=== PATIENT | female | born 1985 | race Caucasian/White ===

== ENCOUNTER 2019-10-22 08:56 | Emergency (ER) | payer SELFPAY ==
[2019-10-22 08:57] VITALS: BP 151/76; PULSE 110; RESP 17; TEMP 36.8; O2SAT 100; BMI 25.6
--- NOTE | 2019-10-22 09:25 | ED.VIS.LOWEX ---
History of Present Illness Chief Complaint: Cellulitis Informant: Patient Occurred: Yesterday Onset: Yesterday Context: Gradual Onset Quality of Pain: Throbbing Narrative: Patient is a 34-year-old female with no known past history presenting with redness and swelling of her left calf. It started with this. It looks like is it. Patient has been tried to squeeze it but does not get any pain. She is having worsening pain. She went to urgent care and was then sent to the emergency room. She denies any associated fever, chills, chest pain, nausea or vomiting. She denies any numbness or tingling. She states she has pain at the site. She denies history of MRSA or abscess. She notes her significant abscess a week or so ago. She denies any other complaints. She is not sure if she is . Past Medical History - Allergies and Home Meds Allergies/Adverse Reactions: Allergies No Known Allergies Allergy (Verified 10/22/19 08:56) Primary Care Physician: Gena Thompson MD [STAFF PHYSICIAN] - Past Medical History: None Surgical History: noncontributory Smoking Status: Current every day smoker Review of Systems General: Denies: Chills, Fever, Sweats Eyes: Denies: Visual changes - bilaterally, Diplopia ENT: Denies: Rhinorrhea, Sore throat Cardiovascular: Denies: Chest pain, Palpitations Respiratory: Denies: Dyspnea, Cough, Dyspnea on exertion Gastrointestinal: Denies: Abdominal pain, Nausea, Vomiting, Diarrhea, Melena, Hematochezia Genitourinary: Denies: Dysuria, Hematuria, Frequency Musculoskeletal: Reports: Swelling - left calf , Extremity Pain - left calf . Denies: Back pain Skin: Reports: Abscess - left calf . Denies: Rash, Wounds Neurological: Denies: Headache, Weakness, Numbness Physical Exam Vital Signs/Narrative: Vital Signs Temp Pulse Resp BP Pulse Ox 10/22/19 08:57 98.2 F 110 H 17 151/76 H 100 Left lower extremity-soft tissue swelling of the left calf. Compartments are soft. No associated joint effusions. Normal range of motion. No bony tenderness. Inital Vital Signs reviewed: Yes General: Well nourished, Well developed Head: Normocephalic, Atraumatic Eyes: Perrl, EOMI ENT: No Trauma, Moist Mucous Membranes Neck: Nontender, Full ROM Cardiovascular: Regular rate, Regular rhythm, No murmurs Respiratory: No distress, CTA bilaterally, Chest nontender Abdomen: Soft, Nontender, Nondistended, Normal bowel sounds Back: Nontender Skin: Rash - 15 cm x 5 cm area of erythema on the left calf with central 3 cm x 2 cm area of fluctuance and induration with a central pore. Neurological: Alert, Oriented x3, Cranial nerves II-XII grossly intact, Normal Strength, Normal Sensation Psychological: Normal affect Diagnostic/Tx/Re-eval Laboratory Data 10/22/19 10:20 Urine Test Negative - Medical Decision Making Patient has cellulite and abscess of left calf. Recent exposure to likely MRSA. See procedure note for I&D. Started on Keflex and Bactrim. Urine preg is negative. Margins marked with marking pen to monitor for worsening symptoms. Packing was not placed per patient request. Patient is counseled on wound care and need for follow up. Patient is counseled on signs and symptoms requiring return to the emergency room. Patient verbalizes agreement and understand this plan. Patient discharged home in stable and improved condition. Procedures Procedure(s): Abscess I&D. Area infiltrated with 1 cc of 1% lidocaine. Once analgesia is achieved a #11 blade was used to make a 2 cm linear incision. A sufficient amount of purulent/bloody drainage is expressed. Areas then irrigated. Was left open and a dressing was placed. Patient tolerated procedure reasonably well. ED Disposition - Plan for ED Patient: Disposition: Home or Assisted Living Diagnosis: Cellulitis and abscess of left leg Instructions: ABSCESS, Incision and Drainage Prescriptions: Smz/Tmp Ds [Bactrim Ds] 1 tab PO BID #14 tab Prescription Printed Cephalexin [Keflex] 500 mg PO Q6 #40 cap Prescription Printed Ibuprofen [Motrin] 600 mg PO Q6H PRN PRN #20 tab PRN Reason: Pain Or Fever Prescription Printed Referrals: Gena Thompson MD [STAFF PHYSICIAN] - Additional Instructions: It is very important that you take all mediations as prescribed. Return if you have worsening pain or redness, especially after 48 hours.
[2019-10-22] MEDS: HYDROcodone Bitartrate/Apap 5/325 Tablet PO (10:15)
[2019-10-22 10:32] LABS: Internal QC Validated? YES +Cl - CLEAR BKGD; Pregnancy, Urine Negative Negative
[2019-10-22] MEDS: Smz/Tmp Ds Tablet 1 TABLET PO (11:29)
[2019-10-22] MEDS: Cephalexin 250 MG Capsule 500 MG PO (11:29)
[2019-10-22 11:30] VITALS: BP 140/87; PULSE 87; RESP 16; O2SAT 96
[2019-10-22 11:47] VITALS: RESP 18
== END 2019-10-22 11:48 | disposition home or self-care (01) ==
PROVIDERS: Emergency Provider Emergency Medicine
DX: L02.416 Cutaneous abscess of left lower limb (principal); L03.116 Cellulitis of left lower limb; F17.200 Nicotine dependence, unspecified, uncomplicated
CPT/HCPCS: 10060; 81025; 99283

== ENCOUNTER 2020-01-09 12:23 | Emergency (ER) | payer SELFPAY ==
[2020-01-09 12:24] VITALS: BP 129/81; PULSE 89; RESP 16; TEMP 36.7; O2SAT 100; BMI 22.3
[2020-01-09] MEDS: Smz/Tmp Ds Tablet 1 TABLET PO (12:59)
[2020-01-09] MEDS: Morphine 4 MG/ML Syringe IM (13:00)
--- NOTE | 2020-01-09 13:30 | ED.DCSUM_ITS ---
History of Present Illness Chief Complaint: Abscess Informant: Patient Onset: Days - 2 Context: Gradual Onset Timing: Continuous Quality: sore, red Location: left thigh Current Severity: Severe Maximum Severity: Severe Worsened by: palpation Relieved by: leaving alone/rest Associated Symptoms: none. no fevers. draining a little pus today. Narrative: Patient had a similar abscess more distal on her lower leg that healed couple weeks ago. She states her boyfriend had a similar abscess as well. She has not had these before otherwise. She has no fevers or systemic symptoms. No obvious injury or foreign body in this area. Past Medical History - Allergies and Home Meds Allergies/Adverse Reactions: Allergies No Known Allergies Allergy (Verified 10/22/19 08:56) Primary Care Physician: Care Physician,No Primary [Primary Care Provider] - Past Medical History: None Surgical History: noncontributory Lives: Spouse/ Significant Other Smoking Status: Former smoker Review of Systems General: Denies: Chills, Fever, Sweats Musculoskeletal: Reports: Extremity Pain Skin: Reports: Rash, Abscess Neurological: Denies: Weakness, Numbness Physical Exam Vital Signs/Narrative: Vital Signs Temp Pulse Resp BP Pulse Ox 01/09/20 12:24 98.1 F 89 16 129/81 H 100 Inital Vital Signs reviewed: Yes General: Well nourished, Well developed, No Acute Distress - well-appearing Head: Normocephalic, Atraumatic Eyes: Perrl, EOMI Extremities: No edema, Tenderness - At left thigh abscess. Full range of motion of all joints of left lower extremity. Skin: Rash - Abscess left medial mid thigh, approximately 4 cm in diameter with a significant amount of flaring erythema/cellulitis surrounding it. No lymphangitis. No other areas except for a healed lesion that is nontender and non-erythematous on the medial proximal lower leg. Neurological: Alert, Oriented x3, Cranial nerves II-XII grossly intact, Normal Strength, Normal Sensation Psychological: Normal affect, Normal Mood Diagnostic/Tx/Re-eval - Medical Decision Making See procedure note for incision and drainage. Patient tolerated well. She was pretreated with morphine at her request, in addition to Bactrim. Gauze packing was placed. Bacitracin dressing was placed. She was given a few [place] to use at home after a negative oars report and a prescription for Bactrim and reasons to return to the ER and/or follow-up with surgery if it does not improve or resolve. Procedures Procedure(s): Incision and drainage w/ packing, abscess left thigh --. Informed consent was obtained. Abscess was cleansed with chlorhexidine soap. Anesthetized with 1% lidocaine without epinephrine, total of 15cc. An incision was made with an 11 scalpel blade. A moderate amount of pus was drained. Curved hemostats were used to break up loculations. The wound was copiously irrigated with normal saline. It was loosely packed with non-iodoform gauze. The patient tolerated it well. Bacitracin dressing placed. ED Disposition - Plan for ED Patient: Disposition: Home or Assisted Living Diagnosis: Cutaneous abscess of left lower extremity Instructions: ABSCESS, Incision and Drainage, MRSA SKIN INFECTION, Suspected or Confirmed Prescriptions: Smz/Tmp Ds [Bactrim Ds] 1 tab PO BID #20 tab [facility]: [facility] Hydrocodone Bitart/Apap 5-325 [[place] 5MG-325MG] 1 tablet PO Q4H PRN PRN 2 Days #10 tablet PRN Reason: Pain Transmission Status: [facility] Referrals: Jesús Junior MD [STAFF PHYSICIAN] - As Needed (or return to ER, if not improving and redness not regressing) Doctor,Your [STAFF PHYSICIAN] - 1-2 Weeks (or after abscess is healed to be evaluated for preventative treatments) Additional Instructions: Dressing changes as needed, at least a couple times a day for the first 2 days. Remove and discard gauze in 2 days (on Tuesday). Take the antibiotic as prescribed until completely gone. As long as the redness is improving/regressing toward the center at the time of gauze removal, continue to do dressing changes until there is no more discharge. Place bacitracin or other antibiotic ointment onto the dressing at each change. You may bathe or shower with soapy water and cleanse gently but do not submerge in any other body of water.
== END 2020-01-09 14:50 | disposition home or self-care (01) ==
PROVIDERS: Emergency Provider Emergency Medicine
DX: L02.416 Cutaneous abscess of left lower limb (principal); Z87.891 Personal history of nicotine dependence
CPT/HCPCS: 10060; 96372; 99282

== ENCOUNTER 2020-10-26 21:30 | Outpatient (CLI) | payer MEDICAID, SELFPAY ==
[2020-10-26 21:45] VITALS: BP 121/62; PULSE 82; TEMP 36.5; O2SAT 97
[2020-10-26 21:50] VITALS: BMI 28.0
[2020-10-26 23:46] VITALS: TEMP 36.7; O2SAT 98
[2020-10-26 23:47] VITALS: BP 116/68; PULSE 76
--- NOTE | 2020-11-07 07:14 | OB.TRI.NOTE ---
- Problem List (1) 36 weeks gestation of Status: Acute (2) Uterine contractions Status: Acute History of Present Illness Date of Service: 10/26/20 Reason For Visit: RULE OUT LABOR Date of Service: 10/26/20 Final TRIP: 11/20/20 Gestational age: 36 week 3 day History of Present Illness: Presents with ctx's Allergies No Known Allergies Allergy (Verified 10/26/20 21:51) Physical Exam Vitals: Vital Signs Temp Pulse BP Pulse Ox 98.1 F 76 116/68 98 10/26/20 23:46 10/26/20 23:47 10/26/20 23:47 10/26/20 23:46 NST - FHR Rate Baby A Baseline: 115 Variability:: Moderate Accelerations:: 15 x 15 Decelerations:: None NST Reactive:: Yes Uterine Activity:: Occasional ctx Impression/Plan Cvx unchanged Does not appear to be in PTL at this time NST reactive D/c home with f/u in office
== END 2020-10-27 | disposition home or self-care (01) ==
LOC: WPOUT 21:37 → OBT 21:38
PROVIDERS: Visit Provider Obstetrics & Gynecology
DX: O62.9 Abnormality of forces of labor, unspecified (principal); Z3A.36 36 weeks gestation of pregnancy
CPT/HCPCS: 59025; 59050; 99218; G0378

== ENCOUNTER 2020-11-11 12:35 | Outpatient (CLI) | payer MEDICAID, SELFPAY ==
[2020-11-11 13:10] VITALS: BP 125/68; PULSE 90
[2020-11-11 13:13] VITALS: BP 125/68; PULSE 90; TEMP 36.7; O2SAT 98
[2020-11-11 13:19] VITALS: BMI 28.1
--- NOTE | 2020-11-30 16:14 | OB.TRI.NOTE ---
History of Present Illness Reason For Visit: R/O LABOR Date of Service: 11/11/20 Final TRIP: 11/20/20 Gestational age: 41 Weeks and 3 Days Allergies No Known Allergies Allergy (Verified 11/13/20 04:51) - Pertinent Past Medical History Medical History: Past Medical History (Last Updated 11/13/20 @ 07:[address] Dulce Blas, DO) History of anemia Laboratory Studies: Laboratory Tests 11/11/20 Range/Units 12:50 Vag Amniotic Fld Detect Cancelled Physical Exam Vitals: Vital Signs Temp Pulse BP Pulse Ox 98.0 F 90 125/68 H 98 11/11/20 13:13 11/11/20 13:13 11/11/20 13:13 11/11/20 13:13 NST - FHR Rate Baby A Baseline: 120 Variability:: Moderate, Marked Decelerations:: Variable Uterine Activity:: Irregular Impression/Plan Reactive NST for false labor
== END 2020-11-11 14:10 | disposition home or self-care (01) ==
LOC: WPOUT 12:54 → OBT 13:16
PROVIDERS: Referring Provider Obstetrics & Gynecology; Visit Provider Obstetrics & Gynecology
DX: O47.1 False labor at or after 37 completed weeks of gestation (principal); Z3A.41 41 weeks gestation of pregnancy
CPT/HCPCS: 59025; 59050; 99218; G0378

== ENCOUNTER 2020-11-13 03:41 | Inpatient (IN) | payer MEDICAID, SELFPAY ==
[2020-11-13] VITALS (40 sets, daily range): BP systolic 100–155; BP diastolic 44–88; PULSE 64–96; RESP 14–16; TEMP 36.1–36.8; O2SAT 88–99; BMI 27.5
[2020-11-13] MEDS: Lactated Ringers 1,000 ML 50 ML IV (04:30)
[2020-11-13 04:49] LABS: Absolute Lymphocyte Count 2.21 X10^3/uL (0.83-4.51); Absolute Neutrophil Count 10.5 X10^3/uL (2.0-7.7); Basophil# 0.03 X10^3/uL; Basophil% 0.2 % (0-1); Eosinophil# 0.08 X10^3/uL; Eosinophils% 0.6 % (0-5); Hematocrit 34.1 % (37-47); Hemoglobin 10.9 g/dL (12.0-15.0); Lymphocyte # 2.21 X10^3/ul (4.0); Lymphocyte % 15.9 % (19-41); Mean Corpuscular Hgb 27.4 pg (27.0-32.0); Mean Corpuscular Volume 85.7 fL (81-99); Mean Platelet Vol. 10.8 fl (6.2-12.0); Monocyte# 1.01 X10^3/uL; Monocyte% 7.3 % (0-10); NRBC Flagged by Analyzer 0 % (0-5); Neutrophil # 10.52 X10^3/uL (2.7-7.7); Neutrophil % 75.6 % (47-70); Platelet Count 218 K/mm3 (150-450); RBC Distribution Width CV 17.4 % (11.6-14.6); RBC Distribution Width SD 55.8 fl (35.1-43.9); Red Blood Count 3.98 M/mm3 (4.2-5.4); White Blood Count 13.9 K/mm3 (4.4-11.0)
[2020-11-13] MEDS: Lactated Ringers 500 ML 999 ML IV ×2 (04:49→06:44)
--- NOTE | 2020-11-13 07:02 | PCM.HP.OB ---
- Problem List (1) 39 weeks gestation of Status: Acute (2) History of delivery Status: Acute (3) Rh negative state in antepartum period Status: Acute History Date of Admission: 11/13/20 Final TRIP: 11/20/20 Gestational age: 39 Weeks and 0 Days History of this : This is a 35 year-old, G 3, P 0202, at 39 weeks gestational age who presents 5.5 cm dilated after membrane sweep. Having irregular ctx's. Medical History: Medical History (Last Updated 11/13/20 @ 07:[address] Dulce Blas, DO) History of anemia Z86.2 Allergies No Known Allergies Allergy (Verified 11/13/20 04:51) Home Medications: Home Medications Ferrous Sulfate [Iron] 325 mg PO DAILY 10/26/20 Pnv No.95/Ferrous Fum/Folic AC [ Caplet] 1 tab PO DAILY 10/26/20 Smoking Status: Former smoker Number of Fetus(es): 1 NST - FHR Rate Baby A FHR Category:: Category I Uterine Activity:: Irregular ctx's History Past Pregnancies: Past Pregnancies Delivery Date Name GA/ Weeks Outcome Route Wt Infant Sex Labor Length Anesthesia Delivery Location Provider FOB Labs: See [facility] record Expected Delivery Method: Physical Exam Vitals: Vital Signs Temp Pulse BP Pulse Ox 97.6 F L 80 122/71 H 98 11/13/20 04:12 11/13/20 06:58 11/13/20 06:58 11/13/20 06:55 General: Alert, No apparent distress HEENT: Atraumatic Abdomen: Gravid Extremities:: No edema Neurological: Neuro grossly intact INTERVIEWING CLERK: Normal external genitalia Estimated gestational size: Appropriate for gestational size Cervix Dilation (cm): 5.5 - per health and wellness advisor/Plan All Active Problems 36 weeks gestation of (Acute) Uterine contractions (Acute) 39 weeks gestation of (Acute) History of delivery (Acute) Rh negative state in antepartum period (Acute) This is a 35 year-old, G 3, P 0202, at 39 weeks gestational age who presents in labor. - Epidural - Will AROM and placed internals after epidural - R/b/a of TOLAC discussed and pt desires TOLAC - GBS negative - Covid ordered - Rh negative - Quad screen increased risk for trisomy 21. Ultrasound unremarkable. NIPT negative - Routine intrapartum care - EFW expected to be < 4500g and pelvis adequate. Anticipate vaginal delivery
[2020-11-13] MEDS: fentaNYL-bupivacaine (epidural) 100 ML BAG EPIDURAL (07:15)
--- NOTE | 2020-11-13 07:47 | PCM.PN.BLA ---
Progress Note Cvx 5.5/80/-2, head well applied. AROM performed for clear fluid. Pt with blood present at time of cervical exam and reports she has been having bleeding since membrane sweep. Internals placed. STROKE Vital Signs/Narrative: Vital Signs Temp Pulse BP Pulse Ox 11/13/20 07:19 91 121/61 H 11/13/20 07:16 93 88 11/13/20 07:14 88 128/59 H 11/13/20 07:11 95 99 11/13/20 07:08 96 112/56 L 11/13/20 07:07 86 99 11/13/20 07:04 85 112/55 L 11/13/20 07:00 73 98 11/13/20 06:58 80 122/71 H 11/13/20 06:55 78 98 11/13/20 06:54 76 121/65 H 11/13/20 06:50 77 97 11/13/20 06:49 81 146/78 H 92 11/13/20 06:45 76 99 11/13/20 06:44 64 100/58 L 11/13/20 06:41 94 97 11/13/20 06:39 75 127/74 H 11/13/20 06:36 80 97 11/13/20 06:35 71 142/76 H 11/13/20 06:31 81 98 11/13/20 06:30 80 155/88 H 11/13/20 06:24 76 153/71 H 99 11/13/20 05:03 71 119/79 11/13/20 04:12 97.6 F L 94 125/78 H
[2020-11-13] MEDS: Lactated Ringers 1,000 ML 200 ML IV (08:14)
[2020-11-13] MEDS: Oxytocin 30 units/NS 500 ml 30 UNITS/500 ML IV.SOLN IV (08:15)
[2020-11-13] MEDS: Oxytocin 30 units/NS 500 ml 30 UNITS/500 ML IV.SOLN 334 UNITS IV (10:44)
[2020-11-13] MEDS: Naproxen 250 MG Tablet 500 MG PO ×2 (13:38→21:08)
[2020-11-13] MEDS: Acetaminophen 500 MG Tablet 1000 MG PO (15:48)
[2020-11-13] MEDS: Senna/Docusate Sodium 1 Tablet PO (21:08)
[2020-11-14 03:31] VITALS: BP 124/64; PULSE 78; RESP 14; TEMP 36.6
[2020-11-14] MEDS: Acetaminophen 500 MG Tablet 1000 MG PO (03:34)
[2020-11-14 05:28] LABS: Hematocrit 29.6 % (37-47); Hemoglobin 9.7 g/dL (12.0-15.0); Mean Corp Hgb Conc 32.8 g/dL (32-36); Mean Corpuscular Hgb 28.5 pg (27.0-32.0); Mean Corpuscular Volume 87.1 fL (81-99); Platelet Count 188 K/mm3 (150-450); RBC Distribution Width CV 17.6 % (11.6-14.6); RBC Distribution Width SD 56.8 fl (35.1-43.9); White Blood Count 11.9 K/mm3 (4.4-11.0)
--- NOTE | 2020-11-14 06:37 | PCM.OPRPT ---
Problem List (1) 39 weeks gestation of Status: Acute (2) History of delivery Status: Acute (3) Rh negative state in antepartum period Status: Acute Report of Operation Date of Procedure: 11/13/20 Pre-Operative Diagnosis: 39 week gestation, TOLAC, labor at term, history prior section Post-Operative Diagnosis: As above, , uterine scar dehiscence Surgery/Procedure Performed:: Description of Surgical Findings:: The patient had about 200 cc of bleeding during her labor process, and 200 cc of bleeding at time of delivery. She was passing occasional clots. The placenta was normal appearing without signs of an abruption. 3VC. Upon uterine exploration a uterine scar dehiscence was noted. The serosa was intact. The myometrium was along the entire length of the prior incision. Type of Anesthesia:: Epidural Special Medications: None Specimen's removed: Placenta Drains: [place] Estimated Blood Loss (mL): 400 cc Description of Procedure: The patient was complete and pushing. The head was delivered followed by anterior shoulder, posterior shoulder, and body of without any force or delay. A VMI was delivered atraumatically and placed on maternal abdomen. The cord was clamped and cut after a 60 sec delay by FOB. Cord blood was obtained. The placenta was delivered with fundal massage. The placenta was normal appearing without evidence of abruption. The uterus was explored and a uterine dehiscence was noted along the entire length of the prior uterine scar, but the serosa was intact. Fundus was firm and bleeding hemostatic. A 1st degree vaginal laceration was repaired with 3-0 Vicryl in usual fashion. A vaginal sweep was performed. Sponge count was correct. Discussed with patient that with next delivery recommend a section. Would not recommend again given dehiscence. Grafts/Implants Used: None - Complications None - Admit VTE Documentation VTE Present on Admission: No VTE Mechan Device Prophylaxis: None VTE Pharm Prophylaxis ordered?: No Vaginal Delivery Maternal Presentation: Active Labor Method of Induction: Pitocin - for augmentation, Amniotomy Amniotic Membrane Rupture Type: Artificial Amniotic Fluid Description: Clear Surgery/ Procedure Performed: - - Type of Anesthesia: Epidural Presentation: Vertex Placental Delivery Description: Expressed Cord Vessel Description: 3 Vessels Cord Entanglement: None A gender: Male (1 minute): 8 (5 minute): 9 Episiotomy Description: None Laceration: 1st degree Medications given after delivery: IV Pitocin Complications: None
--- NOTE | 2020-11-14 08:24 | PCM.PN.OB ---
Patient Problems: Active and Suspected Problems (Last Updated 11/13/20 @ 07:[address] Dulce Blas, DO) 39 weeks gestation of (Acute) History of delivery (Acute) Rh negative state in antepartum period (Acute) Subjective: Patient seen at bedside. Awake and . Feeling well, no pain. Ambulating and voiding without difficulty. Patient desires discharge home today. - Physical Exam Vitals/I&O's: Vital Signs Temp Pulse Resp BP Pulse Ox 97.9 F 78 14 124/64 H 98 11/14/20 03:31 11/14/20 03:31 11/14/20 03:31 11/14/20 03:31 11/13/20 15:59 Oxygen Delivery Method Room Air Weight: 160 lb 8 oz Body Mass Index (BMI) 27.5 Intake and Output for Last 24 Hours 11/12/20 11/13/20 11/14/20 23:59 23:59 23:59 Intake Total 2290.80 / 2290.80 Output Total 1150 / 1150 Balance 1140.80 / 1140.80 General: Alert, Oriented x3 HEENT: Atraumatic Lungs: Normal air movement Cardiovascular: Regular rate Abdomen: Soft, Non Tender Skin: No rashes Neurological: Cranial nerves II-XII grossly intact Psych/Mental Status: Normal Affect, Appropriate Microbiology Past 72 Hours 11/13/20 05:20 Mucosa - Nasopharyngeal SARS-CoV-2 Antigen (Rapid) - Final Laboratory Results 11/14/20 05:20: WBC 11.9 H, RBC 3.40 L, Hgb 9.7 L, Hct 29.6 L, MCV 87.1, MCH 28.5, MCHC 32.8, RDW Std Deviation 56.8 H, RDW Coeff of Kael 17.6 H, Plt Count 188, MPV 11.0 11/14/20 05:20: Screen NEGATIVE, Baby's Blood Type B POSITIVE, Baby's JONATAN NEGATIVE Current Medications Acetaminophen (Acetaminophen 500 Mg Tablet) 1,000 mg PO Q8H PRN PRN PRN Reason: Pain Score 1-3 Last Admin: 11/14/20 03:34 Dose: 1,000 mg Documented by: Al Hydroxide/Mg Hydroxide (Mag Hydrox/Al Hydrox/Simeth 30 Ml Udc) 15 - 30 ml PO Q4H PRN PRN PRN Reason: INDIGESTION Bisacodyl (Bisacodyl 10 Mg Suppository) 10 mg RECTAL UD PRN PRN Reason: If no BM Dibucaine (Dibucaine 30 Gm Tube) 1 applic TOPICAL TID PRN PRN; Protocol PRN Reason: Discomfort Hydrocortisone (Hydrocortisone 2.5% Crm) 1 applic TOPICAL TID PRN PRN; Protocol PRN Reason: Discomfort Lactated Ringer's () 1,000 mls @ 50 mls/hr IV .Q20H CHRIS Last Infusion: 11/13/20 10:45 Dose: Infused Documented by: Methylergonovine Maleate (Methylergonovine 0.2 Mg/Ml Ampul) 0.2 mg IM X1 PRN PRN Reason: Excess bleeding/uterine atony Naproxen (Naproxen 250 Mg Tablet) 500 mg PO Q8H PRN PRN PRN Reason: Pain Score 1-3 Last Admin: 11/13/20 21:08 Dose: 500 mg Documented by: Ondansetron HCl (Ondansetron 4 Mg/2 Ml Vial) 4 mg IV Q4H PRN PRN PRN Reason: NAUSEA Ondansetron HCl (Ondansetron 4 Mg/2 Ml Vial) 4 mg IV Q4H PRN PRN PRN Reason: Nausea Senna/Docusate Sodium (Senna/Docusate Sodium 1 Tablet) 1 - 2 tablet PO DAILY PRN PRN PRN Reason: Constipation Last Admin: 11/13/20 21:08 Dose: 2 tablet Documented by: Simethicone (Simethicone 80 Mg Tablet) 80 mg PO PCHS PRN PRN Reason: Indigestion/Stomach pain Sodium Chloride (0.9% Saline Lock 10 Ml Syringe) 10 - 40 ml IV X1 PRN PRN Reason: SALINE FLUSH Sodium Chloride (0.9% Saline Lock 10 Ml Syringe) 5 - 15 ml IV UD PRN PRN Reason: SALINE FLUSH Medical Necessity - Tobacco Use Smoking Status: Former smoker Assessment/Plan All Active Problems (Last Updated 11/13/20 @ 07:[address] Dulce Blas, DO) 36 weeks gestation of (Acute) Uterine contractions (Acute) 39 weeks gestation of (Acute) History of delivery (Acute) Rh negative state in antepartum period (Acute) A/P PPD #1 Routine care support Discharge home with follow up in office
--- NOTE | 2020-11-14 08:35 | DCINST_ITS ---
Discharge Diet: No Restrictions May resume sexual activity in: 6-8 weeks Weight Bearing Status: Weight bearing as tolerated Additional Instructions: If you experience any of the following, contact your healthcare provider. * Bleeding that soaks a pad every hour for 2 hours * Fever 100.4 or higher * Unrelieved incision or abdominal pain * Swelling, redness, discharge or bleeding from your incision or episiotomy site * Your incision begins to separate * Problems urinating (including inability to urinate or burning while urinating). * Visual changes * Severe headache * Flu-like symptoms * Pain or redness in one of both of your breasts * Pain, warmth, tenderness or swelling in your legs, especially the calf area * Frequent nausea and vomiting * Symptoms of depression or anxiety If you experience any of the following, call 911 or go to the nearest Emergency Room. * Chest pain * Problems breathing * Seizure activity * Partial or complete paralysis of a body part, slurred speech, weakness or drooping of the face, or a sudden inability to walk or hold your balance Allergies/Adverse Reactions: Allergies No Known Allergies Allergy (Verified 11/13/20 04:51) Medications to take at Discharge Pnv No.95/Ferrous Fum/Folic AC [ Caplet] 1 tab PO DAILY 10/26/20 When: 2 weeks virtual visit/ 6 weeks in office Primary Care Physician: Care Physician,No Primary [Primary Care Provider] - Test Results: Test results from this visit will be discussed in further detail at your follow-up appointment, if applicable. Proposed Discharge Date: 11/14/20
--- NOTE | 2020-11-14 08:35 | PCM.DCVAG ---
Discharge Diet: No Restrictions May resume sexual activity in: 6-8 weeks Weight Bearing Status: Weight bearing as tolerated Additional Instructions: If you experience any of the following, contact your healthcare provider. Bleeding that soaks a pad every hour for 2 hours Fever 100.4 or higher Unrelieved incision or abdominal pain Swelling, redness, discharge or bleeding from your incision or episiotomy site Your incision begins to separate Problems urinating (including inability to urinate or burning while urinating). Visual changes Severe headache Flu-like symptoms Pain or redness in one of both of your breasts Pain, warmth, tenderness or swelling in your legs, especially the calf area Frequent nausea and vomiting Symptoms of depression or anxiety If you experience any of the following, call 911 or go to the nearest Emergency Room. Chest pain Problems breathing Seizure activity Partial or complete paralysis of a body part, slurred speech, weakness or drooping of the face, or a sudden inability to walk or hold your balance Allergies/Adverse Reactions: Allergies No Known Allergies Allergy (Verified 11/13/20 04:51) Medications to take at Discharge Pnv No.95/Ferrous Fum/Folic AC [ Caplet] 1 tab PO DAILY 10/26/20 When: 2 weeks virtual visit/ 6 weeks in office Primary Care Physician: Care Physician,No Primary [Primary Care Provider] - Test Results: Test results from this visit will be discussed in further detail at your follow-up appointment, if applicable. Proposed Discharge Date: 11/14/20
[2020-11-14 09:38] VITALS: BP 112/70; PULSE 70; RESP 16; TEMP 36.1
[2020-11-14] MEDS: Naproxen 250 MG Tablet 500 MG PO (09:46)
[2020-11-14 15:10] VITALS: BP 111/48; PULSE 86; RESP 18; TEMP 36.4; O2SAT 96
--- NOTE | 2020-11-14 18:25 | NURSING ---
Pt declined MMR.
== END 2020-11-14 18:45 | disposition home or self-care (01) | DRG 560 ==
LOC: WPOUT 03:42 → WP 03:43 → WPOUT 03:54 → WP 03:54
PROVIDERS: Admitting Provider Obstetrics & Gynecology; Referring Provider Obstetrics & Gynecology; Visit Provider Obstetrics & Gynecology
DX: O34.219 Maternal care for unspecified type scar from previous cesarean delivery (principal); Z37.0 Single live birth; Z3A.39 39 weeks gestation of pregnancy; O26.893 Other specified pregnancy related conditions, third trimester; Z67.91 Unspecified blood type, Rh negative; Z87.891 Personal history of nicotine dependence; O90.0 Disruption of cesarean delivery wound; O70.0 First degree perineal laceration during delivery; O47.1 False labor at or after 37 completed weeks of gestation
CPT/HCPCS: 59025; 59050; 85025; 85027; 85461; 86850; 86900; 86901; 87426; 90384; 99218; J7120; G0378; J2790